=== PATIENT | female | born 1985 | race African-American/Black ===

== ENCOUNTER 2024-05-26 18:59 | Emergency (ER) | payer OTHER, SELFPAY ==
--- NOTE | ~2024-05-26 | CT_ITS ---
EXAMINATION: CT abdomen pelvis w con DATE: 05/26/2024 22:08 INDICATION: RUQ abdominal pain TECHNIQUE: Computed tomography (CT) of the abdomen and pelvis was performed with 100 mL Omnipaque-350 intravenous contrast. Automated exposure control and iterative reconstruction technique were employe d. The dose-length product was 387.39 mGy-cm. COMPARISON: 07/25/2012. FINDINGS: Lower thorax: Unremarkable Liver: Subtle peripheral right liver lobe hypoenhancement near the dome, decreased since prior examin ation, likely perfusion related abnormality. No lesions detected in segment 7. Liver otherwise normal in appearance. Biliary/Gallbladder: The gallbladder is contracted. No significant surrounding inflammatory change. N o bile duct dilation. Pancreas: No mass or duct dilation. Spleen: Normal. Adrenals:No mass. Kidneys: No suspicious mass, obstructing stone, or hydronephrosis. GI tract: No small or large bowel dilation. Fatty deposition in the colonic wall. Normal appendix. Mesentery/Peritoneum: No ascites, mass, or free air. Retroperitoneum: No mass. Pelvis: Pelvic organs are within normal limits. Soft Tissues: Small uncomplicated fat-containing umbilical hernia. Bones: No acute osseous finding. Thoracolumbar scoliosis. IMPRESSION: No acute process detected in the abdomen or pelvis. Colonic submucosal fat as can be seen with chronic IBD, obesity, chemotherapy treatment, and celiac d isease. Reviewed, dictated and finalized at location K. IMPRESSION: No acute process detected in the abdomen or pelvis. Colonic submucosal fat as can be seen with chronic IBD, obesity, chemotherapy t reatment, and celiac disease.
--- OUTSIDE RECORDS SUMMARY | 2024-05-26 19:02 | XMS_ITS | Referral Summary ---
Author Organization [facility] al Address [address] [place] [address] Care Team Providers Care Legislators Name Role Phone Westley Hobson MD Primary Care Provider [phone] Allergies Active Allergy Reactions Criticality Noted Date Comments Acetaminophen Rash Medium 04/22/2019 Rash Estrogens Shortness of breath High 01/06/2019 Hydromorphone Itching Medium 03/02/2017 Reaction: ITCHING, Itching Oxycodone Rash Medium 04/22/2019 Rash Oxycodone-Acetaminophen Other (See comments) Medium Insomnia Tramadol Itching High 04/12/2014 Reaction: ITCHING, Itching Medications esomeprazole DR (NexIUM) 20 mg granule packet for oral suspension Take 20 mg by mouth daily before breakfast 30 each 2 Active azithromycin (ZITHROMAX) 250 mg tablet Take 1 tablet (250 mg total) by mouth daily Take first 2 tablets together, then 1 every day until finished. 6 tablet 2 Active benzonatate (TESSALON) 100 mg capsuleIndicati ons:Cough Take 1 capsule (100 mg total) by mouth every 8 (eight) hours 21 capsule 2 Active cephalexin (KEFLEX) 500 mg capsule Take 1 capsule (500 mg total) by mouth 3 (three) times a day 15 capsule 2 Active Active Problems No known active problems Social History Tobacco Use Types Packs/Day Years Used Date Smoking Tobacco: Light Smoker Cigarettes Smokeless Tobacco: Never Alcohol Use Standard Drinks/Week Comments Yes 0 (1 standard drink = 0.6 oz pur e alcohol) socially Personal Safety Answer Date Recorded Getting School Help Needed Not on file 03/13 Comments No Sex and Gender Information Value Date Recorded Sex Assigned at Not on file Legal Sex Female 8:39 AM PREPARATION DEPARTMENT SUPERVISOR Gender Identity Not on file Sexual Orientation Not on file Last Filed Vital Signs Vital Sign Reading Time Taken Comments Blood Pressure 120/79 01/31/2022 5:42 PM PREPARATION DEPARTMENT SUPERVISOR Pulse 70 01/31/2022 5:42 PM PREPARATION DEPARTMENT SUPERVISOR Temperature 36.6 C (97.9 F) 01/31/2022 10:56 AM PREPARATION DEPARTMENT SUPERVISOR Respiratory Rate 18 01/31/2022 5:42 PM PREPARATION DEPARTMENT SUPERVISOR Oxygen Saturation 100% 01/31/2022 5:42 PM PREPARATION DEPARTMENT SUPERVISOR Inhaled Oxygen Concentration - - Weight 61.4 kg (135 lb 5.8 oz) 01/31/2022 10:56 AM PREPARATION DEPARTMENT SUPERVISOR Height 177.8 cm (5' 10 ) 01/31/2022 10:56 AM PREPARATION DEPARTMENT SUPERVISOR Body Mass Index 19.42 01/31/2022 10:56 AM PREPARATION DEPARTMENT SUPERVISOR Plan of Treatment Not on file Insurance Care Teams Legislators Relationship Specialty Start Date End Date Westley Hobson MD PCP - General 07/16/18
--- OUTSIDE RECORDS SUMMARY | 2024-05-26 19:02 | XMS_ITS | Clinical Summary ---
Author Organization [facility] al Address [address] [place] [address] Care Team Providers Care Telecommunicator Supervisor Name Role Phone Westley Hobson MD Primary Care Provider [phone] Allergies Active Allergy Reactions Criticality Noted Date [...] Active Active Problems No known active problems Surgical History Surgery Date Site/Laterality Comments BREAST BIOPSY HERNIA REPAIR Medical History Medical History Date Comments Mitral valve prolapse Arthritis Scoliosis Pulmonary embolism (HCC) Social History Tobacco Use Types Packs/Day Years [...] on file Legal Sex Female 8:39 AM MEDICAL DATA ENTRY CLERK Gender Identity Not on file Sexual Orientation Not on file Obstetrics History Last Filed Vital Signs Vital Sign Reading Time Taken Comments Blood Pressure 120/79 01/31/2022 5:42 PM MEDICAL DATA ENTRY CLERK Pulse 70 01/31/2022 5:42 PM MEDICAL DATA ENTRY CLERK Temperature 36.6 C (97.9 F) 01/31/2022 10:56 AM MEDICAL DATA ENTRY CLERK Respiratory Rate 18 01/31/2022 5:42 PM MEDICAL DATA ENTRY CLERK Oxygen Saturation 100% 01/31/2022 5:42 PM MEDICAL DATA ENTRY CLERK Inhaled Oxygen Concentration - - Weight 61.4 kg (135 lb 5.8 oz) 01/31/2022 10:56 AM MEDICAL DATA ENTRY CLERK Height 177.8 cm (5' 10 ) 01/31/2022 10:56 AM MEDICAL DATA ENTRY CLERK Body Mass Index 19.42 01/31/2022 10:56 AM MEDICAL DATA ENTRY CLERK Plan of Treatment Health Maintenance Due Date Last Done Comments Cervical Cancer Screening 1987 Depression Screening 1987 Hepatitis C Screening 1987 DTaP/Tdap/Td Vaccine (1 - Tdap) 12/19/1998 Varicella Vaccines (1 of 2 - 13+ 2-dose series) 12/19/2000 Hepatitis B Screening 12/19/2005 Regular Well Visit/Exam 18-64 12/19/2005 Pneumococcal vaccine <65 (1 of 2 - PCV) 12/19/2006 Influenza Vaccine (#1) 2023 HPV Vaccines Aged Out No longer eligi ble based on patient's age to complete this topic Insurance [place] [address] Care Teams Telecommunicator Supervisor Relationship Specialty Start Date End Date Westley Hobson MD PCP - General 07/16/18
[2024-05-26 19:50] VITALS: BP 112/69; PULSE 65; RESP 15; TEMP 36.6; O2SAT 98
--- OUTSIDE RECORDS SUMMARY | 2024-05-26 20:09 | XMS_ITS | Clinical Summary ---
Author Organization [facility] al Address [address] [place] [address] Care Team Providers Care Styrene Dehydration Reactor Operator Name Role Phone Westley Hobson MD Primary Care Provider [phone] Allergies Active Allergy Reactions Criticality Noted Date [...] on file Legal Sex Female 8:39 AM ROLLER ENGRAVER Gender Identity Not on file Sexual Orientation Not on file Obstetrics History Last Filed Vital Signs Vital Sign Reading Time Taken Comments Blood Pressure 120/79 01/31/2022 5:42 PM ROLLER ENGRAVER Pulse 70 01/31/2022 5:42 PM ROLLER ENGRAVER Temperature 36.6 C (97.9 F) 01/31/2022 10:56 AM ROLLER ENGRAVER Respiratory Rate 18 01/31/2022 5:42 PM ROLLER ENGRAVER Oxygen Saturation 100% 01/31/2022 5:42 PM ROLLER ENGRAVER Inhaled Oxygen Concentration - - Weight 61.4 kg (135 lb 5.8 oz) 01/31/2022 10:56 AM ROLLER ENGRAVER Height 177.8 cm (5' 10 ) 01/31/2022 10:56 AM ROLLER ENGRAVER Body Mass Index 19.42 01/31/2022 10:56 AM ROLLER ENGRAVER Plan of Treatment Health Maintenance Due Date [...] patient's age to complete this topic [place] [address] [place] [address] Care Teams Styrene Dehydration Reactor Operator Relationship Specialty Start Date End Date Westley Hobson MD PCP - General 07/16/18
--- OUTSIDE RECORDS SUMMARY | 2024-05-26 20:09 | XMS_ITS | Clinical Summary ---
Author Organization [facility] Address [address] [place] [address] Care Team Providers Care Glove Presser Name Role Phone Westley Hobson MD Primary Care Provider [phone] Allergies Active Allergy Reactions Criticality Noted Date Comments Hydromorphone Itching Medium 03/02/2017 Reaction: ITCHING, Itching Oxycodone Rash Medium 04/22/2019 Rash Tramadol Itching High 04/12/2014 Reaction: ITCHING, Itching Medications albuterol sulfate HFA 108 (90 Base) MCG/ACT inhaler 12/05/2020 Act bekah albuterol (2.5 MG/3ML) 0.083% nebulizer solution 12/05/2020 Active cyclobenzaprine 10 MG tablet Take 10 mg by mouth 2 (two) times daily as needed. 08/30/2020 Active loratadine 10 MG tablet Take 10 mg by mouth daily. Active Family History Medical History Relation Comments No Known Problems Father Hypertension Mother Relation Status Comments Father Mother Social History Tobacco Use Types Packs/Day Years Used Date Smoking Tobacco: Some Days Cigarettes Smokeless Tobacco: Never Alcohol Use Standard Drinks/Week Comments Yes 0 (1 standard drink = 0.6 oz pur e alcohol) socially Comments No Sex and Gender Information Value Date Recorded Sex Assigned at Not on file Legal Sex Female 7:32 PM CDT Gender Identity Not on file Sexual Orientation Not on file Last Filed Vital Signs Vital Sign Reading Time Taken Comments Blood Pressure 121/70 05/24/2021 1:32 PM CDT Pulse 77 05/24/2021 1:32 PM CDT Temperature 36.4 C (97.6 F) 05/24/2021 1:32 PM CDT Respiratory Rate 18 05/24/2021 1:32 PM CDT Oxygen Saturation 100% 05/24/2021 1:32 PM CDT Inhaled Oxygen Concentration - - Weight 62.1 kg (137 lb) 05/24/2021 1:32 PM CDT Height 177.8 cm (5' 10 ) 05/24/2021 1:32 PM CDT Body Mass Index 19.66 05/24/2021 1:32 PM CDT Plan of Treatment Health Maintenance Due Date Last Done Comments Cervical Cancer Screening Pa p Smear (Age 30 to 64) Every 3 Years 1987 Annual Physical 12/19/1990 Pneumococcal Vaccine: Pediat rics (0 to 5 Years) and At-Risk Patients (6 to 64 Years) (1 of 2 - PCV) 12/19/1993 Hepatitis C 12/19/2005 DTaP, Tdap and Td Vaccines ( 1 - Tdap) 12/19/2006 Hepatitis B Vaccines (1 of 3 - 19+ 3-dose series) 12/19/2006 Cervical Cancer Screening Pa p with HPV Testing (Age 30 to 64) Every 5 Years 12/19/2017 Cervical Cancer Screening with HPV 12/19/2017 COVID-19 Vaccine (2023-2 5 season) 2023 Influenza Adult (#1) 2023 HPV Vaccines Aged Out No longer eligi ble based on patient's age to complete this topic Meningococcal B Vaccine Aged Out No l onger eligible based on patient's age to complete this topic Meningococcal Vaccine Aged Out No charito carla eligible based on patient's age to complete this topic RSV Immunizations Under 20 Months Aged Out No longer eligible based on patient's age to complete this topic [place] [place] [address] Care Teams Glove Presser Relationship Specialty Start Date End Date Westley Hobson MD [address] [address] PCP - General INTERNAL MEDICINE 12/06/20
--- OUTSIDE RECORDS SUMMARY | 2024-05-26 20:09 | XMS_ITS | Clinical Summary ---
Author Organization [facility] Address [address] [place] [address] Care Team Providers Care Stock Checkerer Name Role Phone Westley Hobson MD Primary Care Provider [phone] Source Comments [facility],non-owned Affiliates and Associated Physician Practices is amultiple site organization consisting of ambulatory clinics and hospital sitesin [place], [place], [place] and [place]. This disclosure is being madepursuant to the Care Everywhere program and may not contain all information available regarding this patient. Last updated 17.[facility] Allergies Active Allergy Reactions Criticality Noted Date Comments Estrogens Shortness of Breath High 01/06/2019 Hydromorphone Itching Medium 10/06/2018 Oxycodone-Acetaminophen Other Medium 10/06/2018 Tramadol Itching Medium 10/06/2018 Medications * Be aware that medications may not be up to date on this document. Alwaysverify current medications with the patient. Medication Sig Dispensed Refills Start Date End Date Status albuterol (PROVENTIL;VENTOLI N) (2.5 MG/3ML) 0.083% nebulizer solution albuterol sulfate 2.5 mg/3 mL (0.083 %) solution for nebulization Active albuterol HFA (PROVENTIL;VENTOLI N;PROAIR) 108 (90 Base) MCG/ACT inhaler INL 2 PFS PO Q 4 TO 6 H PRN 6 08/11/2018 Active DULERA 100-5 MCG/ACT inhaler 08/12/2018 Active ondansetron, disintegrating, (ZOFRAN ODT) 4 MG tablet Take 4 mg by mouth every 6 hours as needed for Nausea/Vomiting Allow tablet to dissolve on the tongue Active raNITIdine (ZANTAC) 150 MG tablet Take 150 mg by mouth 2 times daily Active loratadine (CLARITIN) 10 MG tablet Take 10 mg by mouth once daily Active gabapentin (NEURONTIN) 100 MG capsuleIndications :Occipital Neuralgia Take 1 capsule by mouth 3 times daily Reasons: Occipital Neuralgia 90 capsule 11 10/06/2018 Active Additional Information Patient not taking.Reported on 01/06/2019 vitamin D, ergocalciferol, (DRISDOL) 1.25 MG (91925 UT) capsule TK ONE C PO Q 4 WKS UTD 6 10/20/2018 Active promethazine (PHENERGAN) 6.25 MG/5ML solution TK 10 ML PO Q 6 H PRN 0 12/25/2018 Active cyclobenzaprine (FLEXERIL) 10 MG tablet Take 10 mg by mouth 3 times daily as needed for Muscle Spasms Active Active Problems No known active problems Family History Medical History Relation Name Comments Hypertension Mother Relation Name Status Comments Mother Social History Tobacco Use Types Packs/Day Years Used Date Smoking Tobacco: Every Day Cigarettes Smokeless Tobacco: Never Alcohol Use Standard Drinks/Week Comments Not Currently 0 (1 standard drink = 0.6 oz pur e alcohol) Sex and Gender Information Value Date Recorded Sex Assigned at Not on file Gender Identity Not on file Sexual Orientation Not on file Last Filed Vital Signs Vital Sign Reading Time Taken Comments Blood Pressure 100/64 01/25/2020 2:46 PM ACCOUNT SOLUTIONS ANALYST Pulse 72 01/06/2019 11:12 AM ACCOUNT SOLUTIONS ANALYST Temperature 36.7 C (98 F) 01/25/2020 2:46 PM ACCOUNT SOLUTIONS ANALYST Respiratory Rate - - Oxygen Saturation - - Inhaled Oxygen Concentration - - Weight 65 kg (143 lb 3.2 oz) 01/25/2020 2:46 PM ACCOUNT SOLUTIONS ANALYST Height 175.3 cm (5' 9 ) 01/25/2020 2:46 PM ACCOUNT SOLUTIONS ANALYST Body Mass Index 21.15 01/25/2020 2:46 PM ACCOUNT SOLUTIONS ANALYST Plan of Treatment Health Maintenance Due Date Last Done Comments PAP SMEAR 1987 HIV SCREENING 12/19/2002 HEPATITIS C SCREENING 12/15/2005 DTAP/TDAP/TD VACCINES (1 - Tdap) 12/19/2006 HEPATITIS B VACCINE (1 of 3 - 19+ 3-dose series) 12/19/2006 COVID-19 VACCINE (2023-2 5 season) 2023 INFLUENZA VACCINE (#1) 2023 DEPRESSION SCREENING 02/24/2024 ZOSTER VACCINE (1 of 2) 12/19/2037 HIB VACCINE Aged Out No longer eligi ble based on patient's age to complete this topic HPV VACCINE Aged Out No longer eligi ble based on patient's age to complete this topic MENINGOCOCCAL (Group B) VACC INE SHARED DECISION-MAKING Aged Out No longer eligibl e based on patient's age to complete this topic MENINGOCOCCAL GROUPS A/C/Y/W VACCINE Aged Out No longer eligible b ased on patient's age to complete this topic PNEUMOCOCCAL VACCINE Aged Out No long er eligible based on patient's age to complete this topic Care Teams Stock Checkerer Relationship Specialty Start Date End Date Westley Hobson MD [address] [id number] PCP - General 09/03/18
--- OUTSIDE RECORDS SUMMARY | 2024-05-26 20:09 | XMS_ITS | Referral Summary ---
Author Organization [facility] al Address [address] [place] [address] Care Team Providers Care Laboratory Helper Name Role Phone Westley Hobson MD Primary Care Provider [phone] Allergies Active Allergy Reactions Criticality Noted Date [...] on file Legal Sex Female 8:39 AM DEPUTY EDITOR IN CHIEF Gender Identity Not on file Sexual Orientation Not on file Last Filed Vital Signs Vital Sign Reading Time Taken Comments Blood Pressure 120/79 01/31/2022 5:42 PM DEPUTY EDITOR IN CHIEF Pulse 70 01/31/2022 5:42 PM DEPUTY EDITOR IN CHIEF Temperature 36.6 C (97.9 F) 01/31/2022 10:56 AM DEPUTY EDITOR IN CHIEF Respiratory Rate 18 01/31/2022 5:42 PM DEPUTY EDITOR IN CHIEF Oxygen Saturation 100% 01/31/2022 5:42 PM DEPUTY EDITOR IN CHIEF Inhaled Oxygen Concentration - - Weight 61.4 kg (135 lb 5.8 oz) 01/31/2022 10:56 AM DEPUTY EDITOR IN CHIEF Height 177.8 cm (5' 10 ) 01/31/2022 10:56 AM DEPUTY EDITOR IN CHIEF Body Mass Index 19.42 01/31/2022 10:56 AM DEPUTY EDITOR IN CHIEF Plan of Treatment Not on file Insurance Care Teams Laboratory Helper Relationship Specialty Start Date End Date Westley Hobson MD PCP - General 07/16/18
--- NOTE | 2024-05-26 20:18 | ECG_ITS ---
Test Date: 2024-05-26 20:31:24 Measurements Intervals [place] Rate: 54 P: 55 WA: 144 QRS: 25 QRSD: 90 T: 18 QT: 391 QTc: 371 Interpretive Statements SINUS BRADYCARDIA NONSPECIFIC T-WAVE ABNORMALITY- ANT/INF LEADS BASELINE ARTIFACT- V2 BORDERLINE ECG No previous ECG available for comparison Electronically Signed On 05-27-2024 06:12:24 CDT by Torers Almonte D.O.
--- NOTE | 2024-05-26 20:21 | ED.ABDPAIN ---
HPI - Abdominal Pain General Chief Complaint: Abdominal Pain Stated Complaint: Pancreatitis and shortness of breath Time Seen by Provider: 05/26/24 19:22 History of Present Illness HPI narrative: Patient is a 38-year-old female who presents to the ER with right flank pain. She reports the pain started earlier today after she was walking. Patient endorses the pain as ?throbbing and rates it a 10/10. She also endorses shortness of breath associated with the pain. Patient reports she has a history of a PE, MVP and asthma. She reports she went to [place] earlier today for evaluation and they told her she had ?either pancreatitis or a mass. Patient denies any recent fevers, constipation, or urinary symptoms. Related Data Allergies Allergy/AdvReac Type Severity Reaction Status Date / Time acetaminophen (From Percocet) Allergy Intermediate Insomnia Verified 05/26/24 19:55 hydromorphone (From Dilaudid) Allergy Intermediate Itching Verified 05/26/24 19:55 naproxen Allergy Intermediate Itching Verified 05/26/24 19:55 oxycodone (From Percocet) Allergy Intermediate Insomnia Verified 05/26/24 19:55 tramadol Allergy Intermediate Itching Verified 05/26/24 19:55 Review of Systems Review of Systems: All systems reviewed & are unremarkable except as noted in HPI and below Exam Narrative: GENERAL: Well appearing, well-nourished, non-toxic, in mild distress d/t pain. HEAD: Normocephalic, atraumatic. NECK: Supple. No adenopathy, no masses. RESPIRATORY: Airway patent, respirations nonlabored. Clear to auscultation bilaterally, no rales, rhonchi, wheezing. CARDIOVASCULAR: Regular rate and rhythm without murmurs, rubs, or gallops. Peripheral pulses 2+ and equal bilaterally. ABDOMINAL: Soft, tender with palpation, nondistended, no hepatosplenomegaly. Normoactive BS. MUSCULOSKELETAL: Moves all extremities. Strength/ROM intact without gross deformities. SKIN: Warm, dry, normal color. No rashes. NEURO: A&O X3. Speech clear. Cranial nerves II-XII intact. No ataxic movements. PSYCHIATRIC: Appropriate mood and affect. Normal interaction. Course Vital Signs Vital signs: Vital Signs Temperature 36.6 C 05/26/24 19:50 Pulse Rate 65 05/26/24 19:50 Respiratory Rate 15 05/26/24 19:50 Blood Pressure 112/69 05/26/24 19:50 Pulse Oximetry 98 05/26/24 19:50 Oxygen Delivery Room Air 05/26/24 19:50 Temperature 36.6 C 05/26/24 19:50 Pulse Rate 65 05/26/24 19:50 Respiratory Rate 15 05/26/24 19:50 Blood Pressure 112/69 05/26/24 19:50 Pulse Oximetry 98 05/26/24 19:50 Oxygen Delivery Room Air 05/26/24 19:50 MDM - Abdominal Pain MDM Narrative Medical decision making narrative: Patient is a 38-year-old female who presents to the ER with right flank pain. She reports the pain started earlier today after she was walking. Patient endorses the pain as ?throbbing and rates it a 10/10. She also endorses shortness of breath associated with the pain. Patient reports she has a history of a PE, MVP and asthma. She reports she went to [place] earlier today for evaluation and they told her she had ?either pancreatitis or a mass. Patient denies any recent fevers, constipation, or urinary symptoms. Labs Ordered: CBC, CMP, UA, troponin, lipase Imaging Ordered: Abdomen/pelvis CT Medications Ordered: 1 L normal saline IV bolus, 2 mg morphine IV, 25 mg Benadryl IV Results: Patient's abdominal CT scan indicates No acute process detected in the abdomen or pelvis. Colonic submucosal fat as can be seen with chronic IBD, obesity, chemotherapy treatment, and celiac disease. Diagnosis: Gastroenteritis Patient Education/Shared MDM: Results of imaging and blood work shared with patient. She endorses improvement following medication administration. Patient strongly advised to maintain hydration status upon discharge and follow-up with her PCP as soon as possible. She will be discharged home with a prescription for Bentyl. Strict return precautions provided. Patient verbalized understanding is in agreement with plan. Vital signs stable at time of discharge. All questions answered. Differential Diagnosis Differential diagnosis: Likely abdominal pain, acute appendicitis, calculus of kidney, constipation, gastroenteritis and small bowel obstruction Lab Data Attestation: I reviewed the patient's lab results. 05/26/24 20:22 05/26/24 20:22 Labs: Lab Results 05/26/24 05/26/24 05/26/24 Range/Units 20:22 21:52 21:54 WBC 6.2 (4.5-10.0) K/mm3 RBC 4.55 (4.2-5.4) M/mm3 Hgb 12.4 (12.0-15.0) g/dL Hct 40.1 (37.0-47.0) % MCV 88.1 (80-100) fl MCH 27.3 (26-34) pg MCHC 30.9 L (32-36) g/dl RDW 14.1 (11.5-14.5) % Plt Count 293 (150-375) k/mm3 MPV 9.5 (7.4-10.4) fl Immature Gran % (Auto) 0.2 (0-0.5) % Neut % (Auto) 49.2 (45.5-73.1) % Lymph % (Auto) 40.7 (18.3-44.2) % Maverick % (Auto) 8.1 (2.6-8.5) % Eos % (Auto) 1.6 (0-4.4) % Baso % (Auto) 0.2 (0.2-1.2) % Lymph # (Auto) 2.51 (0.9-3.2) K/mm3 Ma[place]ick # (Auto) 0.5 (0.1-0.6) K/mm3 Eos # (Auto) 0.1 (0-0.3) K/mm3 Baso # (Auto) 0.0 (0.0-0.1) K/mm3 Abs Immat Gran (auto) 0.01 (0.00-0.031) K/mm3 Absolute Neuts (auto) 3.0 (1.3-6.7) K/mm3 Absolute Nucleated RBC 0.000 (0.0-0.012) K/mm3 Nucleated RBC % 0.0 (0.0-0.2) % PT 14.5 (11.1-14.7) Seconds INR 1.1 APTT 32.0 (22.3-36.8) Seconds D-Dimer < 0.27 (<0.48) ug/mL Sodium 138 (137-145) mmol/L Potassium 3.5 (3.4-5.0) mmol/L Chloride 101 (98-107) mmol/L Carbon Dioxide 27 (22-30) mmol/L Anion Gap 10 (4-12) mmol/L BUN 9 (7-17) mg/dL Creatinine 0.75 (0.7-1.0) mg/dL Estim Creat Clear Calc 96 ml/min Estimated GFR > 60 (59 - ) Glucose 98 (65-110) mg/dL Calcium 9.0 (8.4-10.2) mg/dL Total Bilirubin 0.3 (0.2-1.3) mg/dL AST 27 (14-36) U/L ALT 14 (6-35) U/L Alkaline Phosphatase 122 (38-126) U/L Troponin I < 0.012 (0.000-0.034) ng/mL Total Protein 8.0 (6.3-8.2) g/dL Albumin 4.4 (3.5-5.1) g/dL Lipase 224 (23-300) U/L Urine Color Yellow (Yellow) Urine Appearance Clear (Clear) Urine pH 6.0 (5.0-9.0) Ur Specific [place] 1.016 (1.001-1.035) Urine Protein Negative (Negative) mg/dL Urine Glucose (UA) Negative (Negative) mg/dL Urine Ketones Trace H (Negative) mg/dL Ur Blood (Man) Negative (Negative) Urine Nitrate Negative (Negative) Urine Bilirubin Negative (Negative) Urine Urobilinogen 0.2 (<2.0) mg/dL Leukocyte Esterase Rfl Negative (Negative) MIAH/UL POC Urine HCG, Qual Negative (Negative) Imaging Data Attestation: I personally reviewed and interpreted this imaging study as follows: Radiologist's impression: ITS Impressions Abdomen/Pelvis CT 05/26/24 22:18 IMPRESSION: No acute process detected in the abdomen or pelvis. Colonic submucosal fat as can be seen with chronic IBD, obesity, chemotherapy treatment, and celiac disease. Discharge Plan Discharge Clinical Impression: Gastroenteritis Patient Disposition: Home, Self-Care Condition: Stable Instructions: Antibiotic Form, Gastroenteritis (ED), Abdominal Pain (ED) Additional Instructions: Please return to the ER with any worsening symptoms. Follow-up with primary care provider as soon as possible. Take all medications as prescribed, including regularly scheduled medications. Patient Language: Burmese Prescriptions: New dicyclomine 10 mg capsule 10 mg PO TID Qty: 12 0RF Follow-up/Referrals: Jensen Senior MD [Physician] - (primary care provider) UNKNOWN,DOCTOR [Primary Care Provider] - Stand Alone Forms: Work/School Release IP Time of Disposition: 22:52
[2024-05-26 20:29] LABS: Basophils Percent Auto 0.2 % (0.2-1.2); Eosinophils Absolute Auto 0.1 K/mm3 (0-0.3); Eosinophils Percent Auto 1.6 % (0-4.4); Hematocrit 40.1 % (37.0-47.0); Hemoglobin 12.4 g/dL (12.0-15.0); Immature Granulocyte Absolute 0.01 K/mm3 (0.00-0.031); Immature Granulocyte Percent A 0.2 % (0-0.5); Lymphocytes Absolute Auto 2.51 K/mm3 (0.9-3.2); Lymphocytes Percent Auto 40.7 % (18.3-44.2); Mean Corpuscular HGB Conc 30.9 g/dl (32-36); Mean Corpuscular Hemoglobin 27.3 pg (26-34); Mean Corpuscular Volume 88.1 fl (80-100); Mean Platelet Volume 9.5 fl (7.4-10.4); Monocytes Absolute Auto 0.5 K/mm3 (0.1-0.6); Monocytes Percent Auto 8.1 % (2.6-8.5); Neutrophils Percent Auto 49.2 % (45.5-73.1); Platelet Count Result 293 k/mm3 (150-375); Red Blood Count 4.55 M/mm3 (4.2-5.4); Red Cell Distribution Width 14.1 % (11.5-14.5); White Blood Count 6.2 K/mm3 (4.5-10.0)
[2024-05-26] MEDS: SODIUM CHLORIDE 0.9% IV 1,000 ML 999 ML IV CONT (20:32)
[2024-05-26] MEDS: MORPHINE SULFATE (*CRX) 2 MG/ML INJ IV PUSH (20:32)
[2024-05-26] MEDS: diphenhydrAMINE HCl INJ 50 MG/ML VIAL 25 MG IV PUSH (20:32)
[2024-05-26 20:39] LABS: Alanine Aminotransferase 14 U/L (6-35); Albumin Level 4.4 g/dL (3.5-5.1); Alkaline Phosphatase 122 U/L (38-126); Anion Gap 10 mmol/L (4-12); Aspartate Amino Transferase 27 U/L (14-36); Bilirubin,Total 0.3 mg/dL (0.2-1.3); Blood Urea Nitrogen 9 mg/dL (7-17); Carbon Dioxide 27 mmol/L (22-30); Chloride 101 mmol/L (98-107); Estimated CRCL calculation 96 ml/min; Estimated Glomerular Filt Rate > 60; Glucose 98 mg/dL (65-110); Lipase 224 U/L (23-300); Potassium 3.5 mmol/L (3.4-5.0); Sodium 138 mmol/L (137-145)
[2024-05-26 20:42] LABS: INR 1.1; Prothrombin Time 14.5 Seconds (11.1-14.7)
[2024-05-26 20:45] LABS: D Dimer < 0.27 ug/mL (<0.48)
[2024-05-26 21:55] LABS: BEDSIDEPREGUCG Negative (Negative)
[2024-05-26 21:59] LABS: Add Urine Microscopic? NO; Appearance Urine Clear (Clear); Bilirubin Urine Negative (Negative); Blood Urine Negative (Negative); Color Urine Yellow (Yellow); Glucose Urine UA Negative (Negative); Ketones Urine Trace mg/dL (Negative); Leukocyte Esterase Ur Negative LEU/UL (Negative); Nitrate Urine Negative (Negative); Protein Urine Negative (Negative); Specific Grav Ur 1.016 (1.001-1.035); Urobilinogen Urine 0.2 mg/dL (<2.0)
[2024-05-26 22:35] LABS: Troponin I < 0.012 ng/mL (0.000-0.034)
[2024-05-26] MEDS: DICYCLOMINE HCL 10 MG CAPSULE PO (23:06)
[2024-05-26 23:09] VITALS: BP 122/81; PULSE 77; RESP 18; O2SAT 100
== END 2024-05-26 23:10 | disposition home or self-care (01) ==
PROVIDERS: Emergency Provider Registered Nurse
DX: K52.9 Noninfective gastroenteritis and colitis, unspecified (principal)
CPT/HCPCS: 36415; 74177; 80053; 81003; 81025; 83690; 84484; 85025; 85380; 85610; 85730; 93005; 96361; 96374; 96375; 99284; A9270; J1200; J2270; J7030; Q9967